=== PATIENT | female | born 1980 | race Caucasian/White ===

== ENCOUNTER 2016-09-24 08:31 | Day surgery (SDC) | payer OTHER ==
[2016-09-23 13:17] VITALS: BMI 32.0
[~2016-09-24 08:31] MED LIST: LACTATED RINGERS SOLUTION 1,000 ML IV SCH; ONDANSETRON 4 MG/2 ML VIAL IVPUSH PRN; PROMETHAZINE HCL 25 MG/1 ML VIAL IVPUSH PRN; oxyCODONE HCL 5 MG TABLET PO PRN
[2016-09-24] MEDS ORDERED: ceFAZolin SODIUM 1 GM VIAL ONE (08:38)
[2016-09-24] MEDS ORDERED: DEXAMETHASONE SOD PHOSPHATE 4 MG/1 ML VIAL ONE (08:39)
[2016-09-24] MEDS ORDERED: KETOROLAC TROMETHAMINE 30 MG/1 ML VIAL ONE (08:39)
[2016-09-24] MEDS ORDERED: ONDANSETRON 4 MG/2 ML VIAL ONE ×2 (08:39→10:43)
[2016-09-24] MEDS ORDERED: PROPOFOL 20 ML ONE ×6 (08:40→10:55)
[2016-09-24] MEDS ORDERED: ROCURONIUM BROMIDE 50 MG/5 ML VIAL ONE (08:47)
[2016-09-24] MEDS ORDERED: SUCCINYLCHOLINE CHLORIDE 200 MG/10 ML VIAL ONE (08:47)
[2016-09-24] MEDS ORDERED: MIDAZOLAM HCL 2 MG/2 ML SINGLE DOSE VIAL ONE ×2 (09:19)
[2016-09-24] MEDS ORDERED: HEPARIN NA (PORCINE) 5,000 UNITS/ML 1ML VIAL ONE (09:31)
[2016-09-24] MEDS ORDERED: BUPIVACAINE HCL/PF 0.5% (5MG/ML) 10 ML VIAL ONE (09:32)
[2016-09-24] MEDS ORDERED: METHYLENE BLUE 1% 10 MG/1 ML VIAL ONE (09:32)
[2016-09-24] MEDS ORDERED: IBUPROFEN 600 MG TABLET (FP) PO PRN (12:32)
[2016-09-24 12:56] VITALS: TEMP 98.2
[2016-09-24 14:35] VITALS: BP 128/77; PULSE 88
--- NOTE | 2016-09-25 07:51 | OP ---
DATE OF OPERATION: 09/24/2016 PREOPERATIVE DIAGNOSIS: Tubal infertility. POSTOPERATIVE DIAGNOSIS: Tubal infertility and endometriosis. PROCEDURE: Operative laparoscopy, operative hysteroscopy, proximal tubal cannulation, hysteroscopic polypectomy, and endometrial curettage. COMPLICATIONS: None. SURGEON: Dr. Inge Morgan. FINE ARTS MODEL: Dr. Rosas and [place] resident. FINDINGS FOLLOWS: Intraabdominally, both right and left fallopian tubes appear to be adherent to the side wall with the right side slightly more adherent compared to the left. Both fimbria appeared to be normal under gross examination. There was some scarring of the ovaries on both sides, as well, to the side wall. There was also scar tissue noted anteriorly near the bladder as well as posteriorly in the cul-se-sac with multiple small focal areas of powder-burn lesions and blebs resembling endometriotic implants. Otherwise, hysteroscopically, both ostia were visualized. There was questionable scarring in the patients left ostia. Upon chromopertubation, there was spill on the right side and no spill was seen on the patients left. There were also a few small polyps seen within the endometrial cavity, which were subcentimeter and in the lower uterine segment. PROCEDURE FOLLOWS: Patient was taken to the operating room where general anesthesia was found to be adequate. She was prepped and draped in normal sterile fashion and placed in the dorsal lithotomy position. A Riojas catheter was placed into the patients bladder, and a pelvic examination revealed a small anteverted uterus. We proceeded with the laparoscopic portion first. A small incision was made in the center of the umbilicus, and with tension, a Veress needle was placed directly and under pressure. When the pressure dropped, noting that we were in the correct intraabdominal cavity, the abdomen was insufflated to a pressure of 15 mmHg. Using CO2 gas, we proceeded to place the trocar, and under direct visual guidance of the camera, after removing the Veress needle. Additional two ports were placed, one in the right lower side and one in the left lower side, under direct visual guidance. These were both 5-mm trocar ports. At this point, a speculum was placed into the vagina, and anterior lip of the cervix was grasped with a single-tooth tenaculum and an acorn manipulator was placed, and the uterine cavity was flushed with methylene blue dye, which spilled on the patients right fallopian tube seen laparoscopically. Given no spill on the left side, we proceeded with a left proximal tubal cannulation, which was done successfully, and spill was then seen on the left side during the tubal cannulation. Upon repeat chromopertubation, however, spill was again only seen on the patients right. We then proceeded to biopsy a small peritoneal lesion, which appeared to be endometriosis. This was done using [place] and placing traction directly on the peritoneum just below the uterus within the cul-se-sac, and laparoscopic marva were used to remove a small piece of peritoneum. The abdomen was irrigated and inspected for hemostasis. There was excellent hemostasis noted throughout the abdomen, and at this point it was the end of the procedure. All instruments were removed from the vagina as well as abdominally. The ports were closed with 4-0 Monocryl in an interrupted fashion. The patient tolerated the procedure well. Sponge, lap, and instrument counts were correct x2, and the patient was taken to the recovery room in stable condition. This operative note was completed by Dr. Rosas. INGE MORGAN M.D. [id number]
--- NOTE | 2016-09-28 08:55 | PATH ---
Surgical Pathology Report Patient Name: WOODROW DANIELSON [facility]. Rec. #: [id number] /Age/Gender: 1980 (Age: 36) / F Account: [id number] Location: [facility] Taken: 09/25/2016 Received: 09/25/2016 Reported: 09/28/2016 Physicians: Andrew Morgan M.D. Specimen(s) Received A: ENDOMETRIAL CURETTINGS B: ENDOMETRIAL POLYP C: CUL DE SAC BIOPSY Clinical History Tubal infertility Final Diagnosis A. ENDOMETRIUM, CURETTING: SECRETORY ENDOMETRIUM WITH FOCAL AREA SUGGESTIVE OF BENIGN ENDOMETRIAL POLYP. NO ENDOMETRIAL HYPERPLASIA OR CARCINOMA IDENTIFIED. BENIGN SQUAMOUS MUCOSA PRESENT. B. ENDOMETRIUM, POLYPECTOMY: SECRETORY ENDOMETRIUM WITH FOCAL AREA SUGGESTIVE OF BENIGN ENDOMETRIAL POLYP. NO ENDOMETRIAL HYPERPLASIA OR CARCINOMA IDENTIFIED. C. CUL-DE-SAC, BIOPSY: ENDOMETRIOSIS. Electronically Signed Peewee Skinner M.D. Gross Description A. Received in formalin labeled "endometrial curettings," is a 1.5 x 1.3 x 0.2 cm aggregate of dash-brown soft tissue fragments. The formalin is filtered and the specimen is entirely submitted in one cassette. B. Received in formalin labeled "endometrial polyp," is a 1.2 x 0.3 x 0.1 cm dash-brown, polypoid portion of soft tissue which is submitted in toto in one cassette. C. Received in formalin labeled "cul-de-sac biopsy," are 2 dash-brown soft tissue fragments measuring 0.2 and 0.7 cm in greatest dimension. The specimens are submitted in toto in one cassette. 09/25/2016 saudi09/25/2016
== END 2016-09-24 14:37 | disposition home or self-care (01) ==
LOC: FASU 08:31 → EDBD 10:00 → FASU 14:37
PROVIDERS: ATTEND Obstetrics & Gynecology Reproductive Endocrinology
PROC: 0UBF4ZX Excision of Cul-de-sac, Percutaneous Endoscopic Approach, Diagnostic (ICD-10-PCS; principal; 2016-09-24 10:46)
PROC: 3E1 Administration, Physiological Systems and Anatomical Regions, Irrigation (ICD-10-PCS; 2016-09-24 10:46)
PROC: 3E0P8KZ Introduction of Other Diagnostic Substance into Female Reproductive, Via Natural or Artificial Opening Endoscopic (ICD-10-PCS; 2016-09-24 10:46)
PROC: 0UDB8ZX Extraction of Endometrium, Via Natural or Artificial Opening Endoscopic, Diagnostic (ICD-10-PCS; 2016-09-24 10:46)
DX: N97.1 Female infertility of tubal origin (principal); N80.3 Endometriosis of pelvic peritoneum
CPT/HCPCS: 84703; 88305-TC; 94760; J1644

== ENCOUNTER 2020-08-14 07:27 | Emergency (ER) | payer OTHER ==
[2020-08-14 07:38] VITALS: TEMP 100.6; BMI 35.4
[2020-08-14 09:55] LABS: BASO % 1.1 % (0-2.0); EOS % 4.2 % (0-4.5); HEMOGLOBIN 13.2 GM/dL (10.7-15.3); MCH 29.2 pg (25.7-33.7); MCHC 33.9 g/dl (32.0-36.0); MEAN CELL VOLUME 86.1 fl (80-96); MEAN PLT VOLUME 9.2 fl (7.5-11.1); MONO % 4.7 % (3.8-10.2); PLATELET COUNT 342 K/MM3 (134-434); RBC 4.53 M/mm3 (3.60-5.2); WHITE BLOOD COUNT 13.7 K/mm3 (4.0-10.0)
[2020-08-14 09:58] LABS: EPI CELLS 12 /uL (0-25.1); HYALINE CASTS 1 /uL (0-3.1); URINE APPEARANCE CLEAR; URINE BACTERIA 33 /uL (0-1359); URINE BILIRUBIN NEGATIVE (NEGATIVE); URINE COLOR YELLOW; URINE GLUCOSE (UA) NEGATIVE (NEGATIVE); URINE KETONE NEGATIVE (NEGATIVE); URINE LEUK ESTERASE TRACE (NEGATIVE); URINE NITRITE NEGATIVE (NEGATIVE); URINE PROTEIN NEGATIVE (NEGATIVE); URINE RBC 3045 /uL (0-23.9); URINE UROBILINOGEN 0.2 mg/dL (0.2-1.0); URINE WBC 8 /uL (0-25.8)
[2020-08-14 10:20] LABS: POTASSIUM 4.2 mmol/L (3.5-5.1)
[2020-08-14 10:22] LABS: CALCIUM 9.6 mg/dL (8.5-10.1)
[2020-08-14 10:23] LABS: ALBUMIN 3.6 g/dl (3.4-5.0); BLOOD UREA NITROGEN 9.2 mg/dL (7-18)
[2020-08-14 10:26] LABS: CREATININE 0.7 mg/dL (0.55-1.3)
[2020-08-14 10:27] LABS: BILIRUBIN,TOTAL 0.4 mg/dL (0.2-1); TOT PROT 7.2 g/dl (6.4-8.2)
[2020-08-14] MEDS ORDERED: RHO(D) IMMUNE GLOBULIN 1,500 UNIT DISP.SYRIN IM ONE (11:54)
[2020-08-14 13:35] VITALS: BP 125/82; PULSE 100
== END 2020-08-14 14:39 | disposition home or self-care (01) ==
LOC: JER 07:27
PROC: 3E023GC Introduction of Other Therapeutic Substance into Muscle, Percutaneous Approach (ICD-10-PCS; principal; 2020-08-14)
DX: O20.0 Threatened abortion (principal); O41.8X90 Other specified disorders of amniotic fluid and membranes, unspecified trimester, not applicable or unspecified; Z3A.00 Weeks of gestation of pregnancy not specified
CPT/HCPCS: 36415; 76817-TC; 80053; 81003; 84702; 85025; 86850; 86900; 86901; 86999; 87086; 99284-25; J1561

== ENCOUNTER 2023-06-18 09:17 | Emergency (ER) | payer OTHER ==
[2023-06-18 09:32] VITALS: BP 133/92; PULSE 93; RESP 18; BMI 35.6
[2023-06-18 10:50] LABS: BASO % 0.8 % (0-2.0); EOS % 2.3 % (0-4.5); HEMATOCRIT 42.2 % (32.4-45.2); HEMOGLOBIN 14.4 GM/dL (10.7-15.3); MCH 29.2 pg (25.7-33.7); MCHC 34.2 g/dl (32.0-36.0); MEAN CELL VOLUME 85.5 fl (80-96); MONO % 4.7 % (3.8-10.2); NEUT % 59.2 % (42.8-82.8); PLATELET COUNT 295 10^3/uL (134-434); RBC 4.93 M/mm3 (3.60-5.2); RDW 13.1 % (11.6-15.6); WHITE BLOOD COUNT 7.6 K/mm3 (4.0-10.0)
[2023-06-18 11:26] LABS: POTASSIUM 4.5 mmol/L (3.5-5.1)
[2023-06-18 11:29] LABS: ALBUMIN 3.9 g/dl (3.4-5.0); BLOOD UREA NITROGEN 10.1 mg/dL (7-18); CALCIUM 9.4 mg/dL (8.5-10.1)
[2023-06-18 11:32] LABS: CREATININE 0.8 mg/dL (0.55-1.3)
[2023-06-18 11:34] LABS: BILIRUBIN,TOTAL 0.6 mg/dL (0.2-1); TOT PROT 7.4 g/dl (6.4-8.2)
== END 2023-06-18 13:56 | disposition home or self-care (01) ==
LOC: JER 09:17
DX: R07.89 Other chest pain (principal); R06.02 Shortness of breath; M79.631 Pain in right forearm
CPT/HCPCS: 36415; 71045-TC-FY; 80053; 83735; 84484; 85025; 93005; 93010; 99285-25